=== PATIENT | female | born 1970 | race African-American/Black ===

== ENCOUNTER 2020-10-02 20:58 | Inpatient (IN) | payer MEDICARE, OTHER ==
[~2020-10-02] VITALS: Ht 162.6 cm; Wt 100.7 kg
[2020-10-02 21:46] LABS: BASOPHILS % (AUTO) 0.4 % (0.0-2.0); EOSINOPHILS % (AUTO) 1.6 % (0.0-6.0); HEMATOCRIT 36 % (33-45); HEMOGLOBIN 11.7 g/dL (11.5-14.8); LYMPHOCYTES # (AUTO) 1.4 /CMM (0.8-4.8); LYMPHOCYTES % (AUTO) 20.1 % (20.0-44.0); MEAN CORPUSCULAR HGB CONC 33 g/dl (31.0-36.0); MEAN CORPUSCULAR VOLUME 81 fL (82-100); MONOCYTES # (AUTO) 0.6 /CMM (0.1-1.30); MONOCYTES % (AUTO) 8.8 % (2.0-12.0); NEUTROPHILS # (AUTO) 4.7 /CMM (1.8-8.9); NEUTROPHILS % (AUTO) 69.1 % (43.0-81.0); PLATELET COUNT (AUTO) 256 /CMM (150-450); RED BLOOD CELL COUNT(AUTO) 4.41 MIL/uL (4.0-5.2); WHITE BLOOD COUNT (AUTO) 6.8 K/uL (4.3-11.0)
[2020-10-02 22:39] LABS: CALCIUM, SERUM 9.6 mg/dL (8.5-10.1); CARBON DIOXIDE 27 mmol/L (21-32); CHLORIDE 102 mmol/L (98-107); CREATININE 1.1 mg/dL (0.6-1.3); GLUCOSE 185 mg/dL (74-106); POTASSIUM 3.2 mmol/L (3.5-5.1); SODIUM SERUM 139 mmol/L (136-145); UREA NITROGEN, BLOOD 18 mg/dL (7-18)
[2020-10-02 22:52] LABS: ALANINE AMINOTRANSFERASE 34 U/L (12-78); ALBUMIN 3.7 g/dL (3.4-5.0); ALKALINE PHOSPHATASE 122 U/L (46-116); ASPARTATE AMINOTRANSFERASE 19 U/L (15-37); B-TYPE NATRIURETIC PEPTIDE 38 PG/ML (0-125); BILIRUBIN,DIRECT 0.1 mg/dL (0.0-0.2); BILIRUBIN,TOTAL 0.4 mg/dL (0.2-1.0); TOTAL PROTEIN, SERUM 7.2 g/dL (6.4-8.2)
[2020-10-02 22:54] LABS: CHOLESTEROL 177 mg/dL (<200); HDL CHOLESTEROL 85 mg/dL (40-60); LDL 70 mg/dL (0-99); TRIGLYCERIDES 119 mg/dL (30-150)
[2020-10-02] MEDS ORDERED: MORPHINE SULFATE INJ 4 MG/ML DISP.SYRIN ONE (23:25)
[2020-10-02] MEDS ORDERED: diphenhydrAMINE HCL 50 MG/ML VIAL ONE (23:25)
[2020-10-02] MEDS ORDERED: IOHEXOL-350 100 ML VIAL IV ONE (23:27)
[2020-10-02] MEDS ORDERED: IV NS 0.9% 0 ML IV ONE (23:28)
[2020-10-02] MEDS ORDERED: MORPHINE SULFATE INJ 2 MG/ML DISP.SYRIN IV ONE (23:30)
[2020-10-02] MEDS ORDERED: diphenhydrAMINE HCL 50 MG/ML VIAL IV ONE (23:30)
[2020-10-03] MEDS ORDERED: predniSONE 20 MG TABLET PO STA (00:31)
[2020-10-03 00:35] LABS: OCCULT BLOOD STOOL POSITIVE (NEGATIVE)
[2020-10-03] MEDS ORDERED: predniSONE 20 MG TABLET ONE (00:41)
[2020-10-03] MEDS ORDERED: predniSONE 10 MG TABLET ONE (00:41)
[2020-10-03 01:00] VITALS: BP 136/79
[2020-10-03] MEDS ORDERED: HYDROMORPHONE 1 MG/1 ML DISP.SYRIN IV PRN (02:30)
[2020-10-03] MEDS: diphenhydrAMINE HCL 50 MG/ML VIAL IV PRN ×4 (03:05→20:12)
[2020-10-03] MEDS ORDERED: ACETAMINOPHEN 325 MG TABLET PO PRN (03:30)
[2020-10-03] MEDS ORDERED: HYDR25TA4 PO (03:37)
[2020-10-03] MEDS ORDERED: HYDR4TAB4 PO (03:37)
[2020-10-03] MEDS ORDERED: CLON1TAB12 PO (03:37)
[2020-10-03] MEDS ORDERED: METF-441 PO (03:37)
[2020-10-03] MEDS ORDERED: ALBU18HF2 INH (03:37)
[2020-10-03] MEDS ORDERED: DIPH-530 PO (03:37)
[2020-10-03] MEDS ORDERED: AMLO10TA4 PO (03:37)
[2020-10-03] MEDS ORDERED: METO50TA16 PO (03:37)
[2020-10-03] MEDS ORDERED: LABE100T5 PO (03:37)
[2020-10-03] MEDS ORDERED: LISI20TA30 PO (03:37)
[2020-10-03] MEDS ORDERED: GLIP5TAB13 PO (03:37)
[2020-10-03] MEDS ORDERED: CLON0.1T PO (03:37)
[2020-10-03 04:00] VITALS: BP 144/84
[2020-10-03] MEDS ORDERED: DEXTROSE 50%-WATER 50 ML DISP.SYRIN IV PRN (04:00)
[2020-10-03] MEDS ORDERED: CLONIDINE HCL 0.1 MG TABLET PO PRN (04:00)
[2020-10-03] MEDS: ONDANSETRON HCL/PF 4 MG/2 ML VIAL IV PRN ×3 (05:41→20:12)
[2020-10-03] MEDS ORDERED: ALBUTEROL FS 2.5 MG/0.5 ML VIAL.NEB IH PRN (06:30)
[2020-10-03] MEDS: glipiZIDE 5 MG TABLET PO SCH ×2 (07:55→18:07)
[2020-10-03] MEDS: METFORMIN 850 MG TABLET PO SCH ×2 (07:55→18:09)
[2020-10-03 08:00] VITALS: BP 147/86
[2020-10-03] MEDS: BLOOD SUGAR DIAGNOSTIC 1 EACH STRIP IN SCH ×4 (08:09→22:09)
[2020-10-03] MEDS: HYDROCHLOROTHIAZIDE 25 MG TABLET PO SCH (08:19)
[2020-10-03] MEDS: clonazePAM 1 MG TABLET PO SCH ×2 (08:21→17:00)
[2020-10-03] MEDS: AMLODIPINE BESYLATE 10 MG TABLET PO SCH (08:22)
[2020-10-03] MEDS: LISINOPRIL (20MG) 20 MG TABLET PO SCH ×2 (08:22→18:07)
[2020-10-03] MEDS: METOPROLOL TARTRATE 50 MG TABLET PO SCH ×2 (08:22→18:07)
[2020-10-03] MEDS: HYDROMORPHONE 1 MG/1 ML DISP.SYRIN IV PRN ×3 (08:26→20:14)
[2020-10-03] MEDS: INSULIN REGULAR, HUMAN 100 UNIT/ML 3 ML VIAL SQ PRN ×2 (08:27→18:10)
[2020-10-03] MEDS ORDERED: CLOPIDOGREL BISULFATE 75 MG TABLET PO SCH (09:00)
[2020-10-03] MEDS ORDERED: predniSONE 20 MG TABLET PO SCH (09:00)
[2020-10-03 12:00] VITALS: BP 145/72
[2020-10-03 13:43] LABS: BASOPHILS % (AUTO) 0.7 % (0.0-2.0); EOSINOPHILS % (AUTO) 0.2 % (0.0-6.0); HEMATOCRIT 37 % (33-45); HEMOGLOBIN 11.8 g/dL (11.5-14.8); LYMPHOCYTES # (AUTO) 1.1 /CMM (0.8-4.8); LYMPHOCYTES % (AUTO) 16.7 % (20.0-44.0); MEAN CORPUSCULAR HGB CONC 32 g/dl (31.0-36.0); MEAN CORPUSCULAR VOLUME 81 fL (82-100); MONOCYTES # (AUTO) 0.4 /CMM (0.1-1.30); MONOCYTES % (AUTO) 6.2 % (2.0-12.0); NEUTROPHILS # (AUTO) 5.2 /CMM (1.8-8.9); NEUTROPHILS % (AUTO) 76.2 % (43.0-81.0); PLATELET COUNT (AUTO) 289 /CMM (150-450); RED BLOOD CELL COUNT(AUTO) 4.56 MIL/uL (4.0-5.2); WHITE BLOOD COUNT (AUTO) 6.9 K/uL (4.3-11.0)
[2020-10-03 13:55] LABS: CALCIUM, SERUM 9.3 mg/dL (8.5-10.1); CREATININE 1.1 mg/dL (0.6-1.3); MAGNESIUM 1.8 mg/dL (1.8-2.4); PHOSPHORUS 3.1 mg/dL (2.5-4.9); POTASSIUM 3.6 mmol/L (3.5-5.1)
[2020-10-03 14:07] LABS: THYROID STIMULATING HORMONE 0.151 uIU/mL (0.358-3.74)
[2020-10-03] MEDS ORDERED: POTASSIUM CHLORIDE 20 MEQ TAB.PRT.SR PO ONE (14:30)
[2020-10-03] MEDS ORDERED: IV D5/0.45 NACL 1,000 ML IV PRN (15:00)
[2020-10-03 16:00] VITALS: BP_SYST 140; BP_SYST 145; BP_DIAS 70; BP_DIAS 72
[2020-10-03] MEDS: PANTOPRAZOLE 40 MG VIAL IV SCH (18:01)
[2020-10-03 20:00] VITALS: BP 121/67
[2020-10-03] MEDS: ATORVASTATIN 10 MG TABLET PO SCH (21:55)
[2020-10-04] MEDS: diphenhydrAMINE HCL 50 MG/ML VIAL IV PRN ×5 (00:13→18:27)
[2020-10-04] MEDS: HYDROMORPHONE 1 MG/1 ML DISP.SYRIN IV PRN ×3 (00:14→08:24)
[2020-10-04 04:00] VITALS: BP 149/85
[2020-10-04 08:00] VITALS: BP 128/75
[2020-10-04] MEDS: BLOOD SUGAR DIAGNOSTIC 1 EACH STRIP IN SCH ×4 (08:10→21:18)
[2020-10-04] MEDS: METFORMIN 850 MG TABLET PO SCH ×2 (08:24→17:50)
[2020-10-04] MEDS: glipiZIDE 5 MG TABLET PO SCH ×2 (08:24→17:44)
[2020-10-04] MEDS: PANTOPRAZOLE 40 MG VIAL IV SCH ×2 (10:06→17:43)
[2020-10-04] MEDS: METOPROLOL TARTRATE 50 MG TABLET PO SCH ×2 (10:08→17:00)
[2020-10-04] MEDS: HYDROCHLOROTHIAZIDE 25 MG TABLET PO SCH (10:08)
[2020-10-04] MEDS: LISINOPRIL (20MG) 20 MG TABLET PO SCH ×2 (10:09→17:00)
[2020-10-04] MEDS: AMLODIPINE BESYLATE 10 MG TABLET PO SCH (10:09)
[2020-10-04] MEDS: clonazePAM 1 MG TABLET PO SCH ×2 (10:14→17:52)
[2020-10-04] MEDS ORDERED: HYDROMORPHONE 1 MG/1 ML DISP.SYRIN IV ONE ×2 (11:25→13:00)
[2020-10-04] MEDS ORDERED: HYDROMORPHONE 1 MG/1 ML DISP.SYRIN IV PRN (11:30)
[2020-10-04] MEDS ORDERED: diphenhydrAMINE HCL 25 MG CAPSULE PO ONE (12:00)
[2020-10-04 12:23] LABS: BASOPHILS % (AUTO) 0.7 % (0.0-2.0); EOSINOPHILS % (AUTO) 1.8 % (0.0-6.0); HEMATOCRIT 38 % (33-45); HEMOGLOBIN 11.8 g/dL (11.5-14.8); LYMPHOCYTES # (AUTO) 2.9 /CMM (0.8-4.8); LYMPHOCYTES % (AUTO) 48.7 % (20.0-44.0); MEAN CORPUSCULAR HGB CONC 32 g/dl (31.0-36.0); MEAN CORPUSCULAR VOLUME 81 fL (82-100); MONOCYTES # (AUTO) 0.5 /CMM (0.1-1.30); MONOCYTES % (AUTO) 8.6 % (2.0-12.0); NEUTROPHILS # (AUTO) 2.4 /CMM (1.8-8.9); NEUTROPHILS % (AUTO) 40.2 % (43.0-81.0); PLATELET COUNT (AUTO) 274 /CMM (150-450); RED BLOOD CELL COUNT(AUTO) 4.61 MIL/uL (4.0-5.2); WHITE BLOOD COUNT (AUTO) 5.9 K/uL (4.3-11.0)
[2020-10-04] MEDS ORDERED: CEFTRIAXONE 1 G VIAL IM ONE (12:30)
[2020-10-04] MEDS ORDERED: METRONIDAZOLE 500 MG TABLET PO ONE (12:30)
[2020-10-04] MEDS ORDERED: oxyCODONE/APAP (5/325 MG) 1 UDTAB TABLET PO PRN (12:30)
[2020-10-04 12:35] LABS: CALCIUM, SERUM 9.1 mg/dL (8.5-10.1); POTASSIUM 3.6 mmol/L (3.5-5.1)
[2020-10-04] MEDS ORDERED: METHOCARBAMOL (500MG) 500 MG TABLET PO SCH (13:00)
[2020-10-04] MEDS ORDERED: METOCLOPRAMIDE HCL 10 MG/2 ML VIAL IV ONE (13:00)
[2020-10-04] MEDS: METHOCARBAMOL (500MG) 500 MG TABLET PO SCH ×2 (13:10→21:00)
[2020-10-04] MEDS ORDERED: LIDOCAINE HCL/PF 1% 30 ML VIAL IM ONE (13:31)
[2020-10-04 16:00] VITALS: BP 95/45
[2020-10-04 20:00] VITALS: BP 107/62
[2020-10-04] MEDS: DOXYCYCLINE HYCLATE (100 MG) 100 MG TABLET PO SCH (21:17)
[2020-10-04] MEDS: ATORVASTATIN 10 MG TABLET PO SCH (21:18)
[2020-10-05 04:00] VITALS: BP 135/68
[2020-10-05] MEDS: METHOCARBAMOL (500MG) 500 MG TABLET PO SCH ×3 (05:00→21:39)
[2020-10-05] MEDS: diphenhydrAMINE HCL 50 MG/ML VIAL IV PRN ×5 (05:04→23:24)
[2020-10-05] MEDS: oxyCODONE/APAP (5/325 MG) 1 UDTAB TABLET PO PRN ×4 (05:08→23:19)
[2020-10-05] MEDS: ONDANSETRON HCL/PF 4 MG/2 ML VIAL IV PRN ×2 (05:20→08:31)
[2020-10-05 06:21] LABS: BASOPHILS # (AUTO) 0.1 /CMM (0.0-0.2); BASOPHILS % (AUTO) 1.3 % (0.0-2.0); CALCIUM, SERUM 8.5 mg/dL (8.5-10.1); CREATININE 1.1 mg/dL (0.6-1.3); EOSINOPHILS % (AUTO) 2.2 % (0.0-6.0); HEMATOCRIT 37 % (33-45); HEMOGLOBIN 11.6 g/dL (11.5-14.8); LYMPHOCYTES # (AUTO) 1.9 /CMM (0.8-4.8); LYMPHOCYTES % (AUTO) 38.6 % (20.0-44.0); MAGNESIUM 1.5 mg/dL (1.8-2.4); MEAN CORPUSCULAR HGB CONC 32 g/dl (31.0-36.0); MEAN CORPUSCULAR VOLUME 82 fL (82-100); MONOCYTES # (AUTO) 0.4 /CMM (0.1-1.30); MONOCYTES % (AUTO) 8.9 % (2.0-12.0); NEUTROPHILS # (AUTO) 2.4 /CMM (1.8-8.9); PLATELET COUNT (AUTO) 238 /CMM (150-450); POTASSIUM 3.4 mmol/L (3.5-5.1); RED BLOOD CELL COUNT(AUTO) 4.47 MIL/uL (4.0-5.2)
[2020-10-05 08:00] VITALS: BP 135/78
[2020-10-05] MEDS: BLOOD SUGAR DIAGNOSTIC 1 EACH STRIP IN SCH ×4 (08:09→21:40)
[2020-10-05] MEDS: clonazePAM 1 MG TABLET PO SCH ×2 (08:09→17:43)
[2020-10-05] MEDS: glipiZIDE 5 MG TABLET PO SCH ×2 (08:09→17:43)
[2020-10-05] MEDS: METFORMIN 850 MG TABLET PO SCH ×2 (08:09→17:43)
[2020-10-05] MEDS: PANTOPRAZOLE 40 MG VIAL IV SCH ×2 (08:09→17:44)
[2020-10-05] MEDS: DOXYCYCLINE HYCLATE (100 MG) 100 MG TABLET PO SCH ×2 (08:09→20:18)
[2020-10-05] MEDS: AMLODIPINE BESYLATE 10 MG TABLET PO SCH (08:22)
[2020-10-05] MEDS: METOPROLOL TARTRATE 50 MG TABLET PO SCH ×2 (08:23→17:43)
[2020-10-05] MEDS: HYDROCHLOROTHIAZIDE 25 MG TABLET PO SCH (08:23)
[2020-10-05] MEDS: LISINOPRIL (20MG) 20 MG TABLET PO SCH ×2 (08:23→17:43)
[2020-10-05] MEDS: POTASSIUM CHLORIDE 20 MEQ TAB.PRT.SR PO SCH ×2 (09:22→10:19)
[2020-10-05] MEDS: Magnesium 1GM/D5W 100ML PREMIX 100 ML IV SCH ×2 (09:22→10:19)
[2020-10-05] MEDS ORDERED: LIDOCAINE 5% OINT 35.44 GM TUBE TP PRN (12:30)
[2020-10-05] MEDS: INSULIN REGULAR, HUMAN 100 UNIT/ML 3 ML VIAL SQ PRN ×2 (12:36→18:21)
[2020-10-05] MEDS: MICONAZOLE NITRATE 2% TP SCH ×2 (13:16→20:18)
[2020-10-05] MEDS ORDERED: METH28OI2 TP (13:18)
[2020-10-05] MEDS ORDERED: MICONAZOLE NITRATE 2% TP (13:18)
[2020-10-05] MEDS ORDERED: OXYC1TAB8 PO (13:18)
[2020-10-05] MEDS ORDERED: ATOR10TA PO (13:18)
[2020-10-05] MEDS ORDERED: LIDO35.4 TP (13:18)
[2020-10-05] MEDS ORDERED: DOXY100T2 PO (13:26)
[2020-10-05 16:00] VITALS: BP 130/71
[2020-10-05] MEDS ORDERED: METHYL SALICYLATE/MENTHOL 28GM 28 GM TUBE TP PRN (17:00)
[2020-10-05 20:00] VITALS: BP 123/75
[2020-10-05] MEDS: ATORVASTATIN 10 MG TABLET PO SCH (21:39)
[2020-10-06] MEDS ORDERED: diphenhydrAMINE HCL 50 MG/ML VIAL IV ONE (00:20)
[2020-10-06 04:00] VITALS: BP 130/64
[2020-10-06] MEDS: METHOCARBAMOL (500MG) 500 MG TABLET PO SCH ×2 (05:00→12:14)
[2020-10-06] MEDS: oxyCODONE/APAP (5/325 MG) 1 UDTAB TABLET PO PRN ×2 (06:57→14:03)
[2020-10-06] MEDS: diphenhydrAMINE HCL 50 MG/ML VIAL IV PRN ×2 (06:57→11:00)
[2020-10-06] MEDS: BLOOD SUGAR DIAGNOSTIC 1 EACH STRIP IN SCH ×2 (07:58→12:14)
[2020-10-06 08:00] VITALS: BP 155/86
[2020-10-06] MEDS: HYDROCHLOROTHIAZIDE 25 MG TABLET PO SCH (08:08)
[2020-10-06] MEDS: PANTOPRAZOLE 40 MG VIAL IV SCH (08:08)
[2020-10-06] MEDS: clonazePAM 1 MG TABLET PO SCH (08:08)
[2020-10-06] MEDS: MICONAZOLE NITRATE 2% TP SCH (08:08)
[2020-10-06 08:09] VITALS: BP 155/86
[2020-10-06] MEDS: LISINOPRIL (20MG) 20 MG TABLET PO SCH (08:09)
[2020-10-06] MEDS: glipiZIDE 5 MG TABLET PO SCH (08:09)
[2020-10-06] MEDS: AMLODIPINE BESYLATE 10 MG TABLET PO SCH (08:09)
[2020-10-06] MEDS: METFORMIN 850 MG TABLET PO SCH (08:09)
[2020-10-06] MEDS: METOPROLOL TARTRATE 50 MG TABLET PO SCH (08:09)
[2020-10-06] MEDS: DOXYCYCLINE HYCLATE (100 MG) 100 MG TABLET PO SCH (08:09)
[2020-10-06] MEDS: INSULIN REGULAR, HUMAN 100 UNIT/ML 3 ML VIAL SQ PRN ×2 (08:13→12:07)
[2020-10-06] MEDS ORDERED: SULFANILAMIDE VAG CR 120 GM TUBE VG SCH (09:00)
[2020-10-06] MEDS ORDERED: LATUDA 40MG PO SCH (09:00)
== END 2020-10-06 15:14 | disposition home or self-care (01) | DRG 378 ==
LOC: ER 21:11 → TELE1 10-03 00:28 → MEDSG1 10-03 08:05
PROVIDERS: ADMIT Nurse Practitioner Family; ATTEND Registered Nurse
DX: K92.2 Gastrointestinal hemorrhage, unspecified (principal); G45.9 Transient cerebral ischemic attack, unspecified; E87.6 Hypokalemia; E11.9 Type 2 diabetes mellitus without complications; I25.10 Atherosclerotic heart disease of native coronary artery without angina pectoris; I11.0 Hypertensive heart disease with heart failure; I50.9 Heart failure, unspecified; Z87.891 Personal history of nicotine dependence; Z86.73 Personal history of transient ischemic attack (TIA), and cerebral infarction without residual deficits; R29.702 NIHSS score 2; E78.5 Hyperlipidemia, unspecified; G51.0 Bell's palsy; G89.4 Chronic pain syndrome; E11.40 Type 2 diabetes mellitus with diabetic neuropathy, unspecified; E78.00 Pure hypercholesterolemia, unspecified; F29 Unspecified psychosis not due to a substance or known physiological condition; I25.2 Old myocardial infarction; Z20.2 Contact with and (suspected) exposure to infections with a predominantly sexual mode of transmission; Z68.37 Body mass index [BMI] 37.0-37.9, adult; E66.01 Morbid (severe) obesity due to excess calories; Z76.5 Malingerer [conscious simulation]; Z79.02 Long term (current) use of antithrombotics/antiplatelets; Z79.891 Long term (current) use of opiate analgesic; Z88.2 Allergy status to sulfonamides; Z88.8 Allergy status to other drugs, medicaments and biological substances; Z88.1 Allergy status to other antibiotic agents; Z91.041 Radiographic dye allergy status; Z91.5 Personal history of self-harm
CPT/HCPCS: 36415; 70450-TC; 70551-TC; 71045-TC; 80048-TC; 80061-TC; 80076-TC; 82272-TC; 82728-TC; 82962-TC; 83540-TC; 83735-TC; 83880; 84100-TC; 84439-TC; 84443-TC; 84484-TC; 85025-TC; 85730-TC; 87081-TC; 92526; 92611-TC; 93880-TC; 97110-TC; 97112-TC; 97116-TC; 97530-TC; C9113; C9803; G0378; J0696; J1170; J1200; J1815; J2270; J2405; J2765; J3475; J3490; J7050; Q0163; Q9967

== ENCOUNTER 2020-11-19 20:30 | Inpatient (IN) | payer OTHER, MEDICARE ==
[~2020-11-19] VITALS: Ht 162.6 cm; Wt 99.3 kg
[~2020-11-19 20:30] MED LIST: ALBU18HF2 INH; AMLO10TA4 PO; ATOR10TA PO; CLON0.1T PO; CLON1TAB12 PO; DIPH-530 PO; DOXY100T2 PO; GLIP5TAB13 PO; HYDR25TA4 PO; LIDO35.4 TP; LISI20TA30 PO; METF-441 PO; METH28OI2 TP; METO50TA16 PO; MICONAZOLE NITRATE 2% TP; OXYC1TAB8 PO
--- NOTE | 2020-11-19 20:35 | NUR ---
PATIENT COME C/O RT SIDED NUMBNESS ON FACE, LIGHT SENSITIVTY AND CP PRESSURE LIKE X30MIN +BLACK STOOLS X 1 WEEK. PATIENT IS ALERT AND ORIENTED X 4, STABLE ON ROOM AIR. PATIENT CONNECETED TO SENIOR ENERGY MARKET COORDINATOR AND POX. WILL CONTINUE TO MONIOTR.
--- NOTE | 2020-11-19 20:40 | NUR ---
PT AMBULATED TO BATHROOM WITH STEADY GAIT, PT PROVIDING URINE SAMPLE AT THIS TIME
--- NOTE | 2020-11-19 20:56 | NUR ---
DR TAM AT BEDSIDE FOR EVAL
--- NOTE | 2020-11-19 21:00 | NUR ---
PATIENT HARD STICK, UNABLE TO START IV LINE AT THIS TIME, INFORMED CHARGE.
[2020-11-19 21:31] LABS: BILIRUBIN,URINE Negative (NEGATIVE); COLOR,URINE YELLOW (YELLOW); LEUKOCYTE ESTERASE ,URINE Negative (NEGATIVE); NITRITE, URINE Negative (NEGATIVE); PROTEIN,URINE 30 mg/dl (NEGATIVE); UGLUCOSE 500 MG/DL mg/dL (NEGATIVE); UROBILINOGEN,URINE 0.2 EU/dL (0.2)
[2020-11-19 21:36] LABS: RBC,URINE 0-2 /HPF (0-2); WBC,URINE 0-2 /HPF (0-3)
[2020-11-19 21:37] LABS: BACTERIA,URINE Rare /HPF (None Seen); MUCUS,URINE Few /LPF (None Seen); SQUAMOUS EPITHELIAL CELL,UR 0-2 /HPF (None Seen)
[2020-11-19 21:42] LABS: WHITE BLOOD COUNT (AUTO) 7.2 K/uL (4.3-11.0)
[2020-11-19 21:45] LABS: BASOPHILS % (AUTO) 0.7 % (0.0-2.0); EOSINOPHILS % (AUTO) 1.7 % (0.0-6.0); HEMATOCRIT 41 % (33-45); HEMOGLOBIN 13.4 g/dL (11.5-14.8); LYMPHOCYTES % (AUTO) 28.3 % (20.0-44.0); MEAN CORPUSCULAR HGB CONC 33 g/dl (31.0-36.0); MEAN CORPUSCULAR VOLUME 80 fL (82-100); MONOCYTES # (AUTO) 0.5 /CMM (0.1-1.30); MONOCYTES % (AUTO) 6.4 % (2.0-12.0); NEUTROPHILS # (AUTO) 4.5 /CMM (1.8-8.9); NEUTROPHILS % (AUTO) 62.9 % (43.0-81.0); PLATELET COUNT (AUTO) 281 /CMM (150-450); RED BLOOD CELL COUNT(AUTO) 5.15 MIL/uL (4.0-5.2)
[2020-11-19 21:48] LABS: CALCIUM, SERUM 9.4 mg/dL (8.5-10.1); CARBON DIOXIDE 28 mmol/L (21-32); CHLORIDE 101 mmol/L (98-107); CREATININE 0.9 mg/dL (0.6-1.3); GLUCOSE 249 mg/dL (74-106); POTASSIUM 3.5 mmol/L (3.5-5.1); SODIUM SERUM 137 mmol/L (136-145); UREA NITROGEN, BLOOD 16 mg/dL (7-18)
[2020-11-19] MEDS ORDERED: ACETAMINOPHEN ES 500 MG TABLET ONE (22:17)
[2020-11-19] MEDS ORDERED: ACETAMINOPHEN ES 500 MG TABLET PO ONE (22:30)
--- NOTE | 2020-11-19 22:30 | NUR ---
PATIENT REFUSED X-RAY X 2, RISK AND BENEFITS EXPLAINED TO PATIENT
[2020-11-19] MEDS ORDERED: MORPHINE SULFATE INJ 4 MG/ML DISP.SYRIN ONE (22:52)
--- NOTE | 2020-11-19 22:54 | NUR ---
PATIENT GIVEN MORPHINE 4MG IM X 1.
--- NOTE | 2020-11-19 22:55 | NUR ---
COVID SWAB COLLECTED SENT TO LAB
[2020-11-19] MEDS ORDERED: MORPHINE SULFATE INJ 2 MG/ML DISP.SYRIN IV ONE (23:00)
[2020-11-19] MEDS ORDERED: MORPHINE SULFATE INJ 2 MG/ML DISP.SYRIN IM ONE (23:00)
--- NOTE | 2020-11-19 23:11 | NUR ---
PATIENT RETURNED FROM CT
[2020-11-20] MEDS ORDERED: MAGNESIUM HYDROXIDE 30 ML UDC PO PRN
[2020-11-20] MEDS ORDERED: ZOLPIDEM TARTRATE 5 MG TABLET PO PRN
[2020-11-20] MEDS ORDERED: METHYL SALICYLATE/MENTHOL 28GM 28 GM TUBE TP PRN
[2020-11-20] MEDS ORDERED: HYDROMORPHONE HCL 2 MG TABLET PO PRN
[2020-11-20] MEDS ORDERED: ACETAMINOPHEN 325 MG TABLET PO PRN
[2020-11-20] MEDS ORDERED: DEXTROSE 50%-WATER 50 ML DISP.SYRIN IV PRN
[2020-11-20] MEDS ORDERED: ENOXAPARIN SODIUM 40 MG/0.4 ML DISP.SYRIN SQ ONE
[2020-11-20] MEDS ORDERED: oxyCODONE/APAP (5/325 MG) 1 UDTAB TABLET ONE (00:26)
[2020-11-20] MEDS: oxyCODONE/APAP (5/325 MG) 1 UDTAB TABLET PO PRN ×2 (00:28→14:42)
[2020-11-20] MEDS ORDERED: ALBUTEROL FS 2.5 MG/3 ML VIAL.NEB NEB PRN (00:30)
--- NOTE | 2020-11-20 00:30 | NUR ---
PATIENT REFUSED ECHOCARDIOGRAM, RISK AND BENEFITS HAVE BEEN EXPLAINED TO PATIENT.
--- NOTE | 2020-11-20 00:58 | NUR ---
REPORT GIVEN TO CHARGE MARILYN TAVERA GOING TO ROOM 323-2
[2020-11-20] MEDS ORDERED: diphenhydrAMINE HCL ELIX 25 MG/10 ML UDC PO PRN (01:00)
--- NOTE | 2020-11-20 01:11 | NUR ---
PATIENT TRANSFERRED PER ACLS PROTOCOL
--- NOTE | 2020-11-20 01:11 | NUR ---
POTATO CHIP PROCESSING SUPERVISORTEACHER OF THE HEARING IMPAIRED NOTE PT TRANSPORTED VIA GURNEY TO TELE UNIT. A/O X4. PT IS AMBULATORY. GAIT IS STEADY. PT IS ON EXTERNAL COOKING CHEF READING SR 88. NO SOB NOTED. NO S/S OF RESPIRATORY DISTRESS. PT STABLE ON ROOM AIR. NO IV ACCESS AT THIS TIME. PT DENIES PAIN OR DISCOMFORT. SKIN IS INTACT. PT ORIENTED TO STAFF, ROOM, AND UNIT. SAFETY AND ASPIRATION PRECAUTIONS IN PLACE AND MAINTAINED AT ALL TIMES. BED IN LOWEST LOCKED POSITION, HOB ELEVATED, SIDE RAILS UP X2. CALL LIGHT AND TABLE WITHIN REACH. WILL CONTINUE TO MONITOR.
[2020-11-20 01:45] VITALS: BP 158/88
[2020-11-20] MEDS: ATORVASTATIN 10 MG TABLET PO SCH ×2 (01:49→22:05)
--- NOTE | 2020-11-20 04:00 | NUR ---
PT REFUSED VITAL SIGNS. RISKS AND BENEFITS EXPLAINED TO PT. WILL CONTINUE TO MONITOR PT.
[2020-11-20] MEDS: METHOCARBAMOL (500MG) 500 MG TABLET PO SCH ×3 (05:00→21:00)
--- NOTE | 2020-11-20 06:50 | NUR ---
PT REFUSED ACCUCHECK AT THIS TIME. RISKS AND BENEFITS EXPLAINED TO PATIENT.
--- NOTE | 2020-11-20 07:02 | NUR ---
MAIL HANDLER ASSISTANT CLOSING NOTE PATIENT IS AWAKE IN BED AT THIS TIME. A/O X4. PT IS AMBULATORY. GAIT IS STEADY. PT IS ON EXTERNAL BRASSWIND INSTRUMENT REPAIRER READING SR 86. NO SOB NOTED. NO S/S OF RESPIRATORY DISTRESS. PT STABLE ON ROOM AIR. NO IV ACCESS AT THIS TIME. PT DENIES PAIN OR DISCOMFORT. ALL NEEDS HAVE BEEN MET. SAFETY AND ASPIRATION PRECAUTIONS MAINTAINED AT ALL TIMES. BED IN LOWEST LOCKED POSITION, HOB ELEVATED, SIDE RAILS UP X2. CALL LIGHT AND TABLE WITHIN REACH. WILL ENDORSE TO ONCOMING NURSE FOR CONTINUITY OF CARE.
[2020-11-20] MEDS: BLOOD SUGAR DIAGNOSTIC 1 EACH STRIP IN SCH ×4 (07:30→22:23)
--- NOTE | 2020-11-20 07:39 | NUR ---
WILDLIFE ECOLOGIST OPENING NOTE PATIENT IS AWAKE IN BED AT THIS TIME. A/O X4. PT IS ON EXTERNAL JERKER READING SR 88. NO SOB NOTED. NO S/S OF RESPIRATORY DISTRESS. PT STABLE ON ROOM AIR. NO IV ACCESS AT THIS TIME, BUT THERE IS AN ORDER FOR MIDLINE. PT DENIES PAIN OR DISCOMFORT. PATIENT IS AMBULATORY SKIN INTACT. SAFETY PRECAUTIONS MAINTAINED AT ALL TIMES. BED IN LOWEST LOCKED POSITION, HOB ELEVATED, SIDE RAILS UP X2. CALL LIGHT AND TABLE WITHIN REACH
--- NOTE | 2020-11-20 07:45 | NUR ---
FLORAL DECORATOR NOTES PATIENT CONTINUES TO REFUSE ACCUCHECK AND MORNING LABS AT THIS TIME. PATIENT WANTED TO REST. EXPLAINED RISK AND BENEFITS AT THIS TIME. WILL CONTINUE TO MONITOR
[2020-11-20] MEDS: glipiZIDE 5 MG TABLET PO SCH ×2 (08:15→16:38)
[2020-11-20] MEDS: clonazePAM 1 MG TABLET PO SCH ×2 (08:37→16:38)
[2020-11-20] MEDS: METFORMIN 850 MG TABLET PO SCH ×2 (08:37→17:03)
[2020-11-20] MEDS: METOPROLOL TARTRATE 50 MG TABLET PO SCH ×2 (08:38→16:39)
[2020-11-20] MEDS: LISINOPRIL (20MG) 20 MG TABLET PO SCH ×2 (08:38→16:38)
[2020-11-20] MEDS: AMLODIPINE BESYLATE 10 MG TABLET PO SCH (08:39)
[2020-11-20] MEDS: HYDROCHLOROTHIAZIDE 25 MG TABLET PO SCH (08:39)
--- NOTE | 2020-11-20 08:45 | NUR ---
RN NOTES PATIENT REFUSED ECHO PER BODILY INJURY ADJUSTER; PER PATIENT, SHE WANTS TO WAIT FOR THE MIDLINE TO BE INSERTED BEFORE PROCEDURE WILL BE DONE. WITH NEW ORDER FOR CT ANGIO OF THE HEART; PATIENT MADE AWARE OF NEW ORDER AND CONTRAST ADMINISTRATION, BUT PATIENT STATED THAT SHE HAS CONTRAST ALLERGY, UNABLE TO STATE EXTENT OF ALLERGY SEVERITY. CHARGE NURSE MADE AWARE. WILL CONTINUE TO MONITOR.
--- NOTE | 2020-11-20 09:18 | NUR ---
PATIENT REFUSED AN ECHOCARDIOGRAM. SHE WANTS TO HAVE HER PAIN MEDS THRU MIDLINE PRIOR TO HAVING AN ECHO. RN ADVISED.
--- NOTE | 2020-11-20 10:00 | NUR ---
RN NOTES DR. HOFFMANN MADE AWARE OF PATIENT'S CONTRAST ALLERGY R/T CT ANGIO HEART PROCEDURE.
[2020-11-20] MEDS: INSULIN REGULAR, HUMAN 100 UNIT/ML 3 ML VIAL SQ PRN ×3 (11:06→22:25)
[2020-11-20] MEDS: ONDANSETRON HCL/PF 4 MG/2 ML VIAL IVP PRN ×2 (11:39→22:07)
[2020-11-20] MEDS: MORPHINE SULFATE INJ 2 MG/ML DISP.SYRIN IV PRN ×3 (11:43→22:08)
--- NOTE | 2020-11-20 12:31 | NUR ---
RN NOTES PATIENT HAS VTE SCORE OF 2. PATIENT REFUSED MECHANICAL SCD SOCKS, RISKS AND BENEFITS EXPLAINED. MD AWARE.
[2020-11-20 15:01] LABS: BASOPHILS # (AUTO) 0.1 /CMM (0.0-0.2); BASOPHILS % (AUTO) 1.3 % (0.0-2.0); EOSINOPHILS % (AUTO) 2.3 % (0.0-6.0); HEMATOCRIT 40 % (33-45); HEMOGLOBIN 12.9 g/dL (11.5-14.8); LYMPHOCYTES % (AUTO) 30.5 % (20.0-44.0); MEAN CORPUSCULAR HGB CONC 32 g/dl (31.0-36.0); MEAN CORPUSCULAR VOLUME 80 fL (82-100); MONOCYTES # (AUTO) 0.6 /CMM (0.1-1.30); MONOCYTES % (AUTO) 8.3 % (2.0-12.0); NEUTROPHILS # (AUTO) 3.8 /CMM (1.8-8.9); NEUTROPHILS % (AUTO) 57.6 % (43.0-81.0); PLATELET COUNT (AUTO) 252 /CMM (150-450); RED BLOOD CELL COUNT(AUTO) 5.03 MIL/uL (4.0-5.2); WHITE BLOOD COUNT (AUTO) 6.7 K/uL (4.3-11.0)
[2020-11-20 15:33] LABS: CALCIUM, SERUM 9.2 mg/dL (8.5-10.1); CREATININE 0.9 mg/dL (0.6-1.3); MAGNESIUM 1.4 mg/dL (1.8-2.4); PHOSPHORUS 3.6 mg/dL (2.5-4.9); POTASSIUM 3.6 mmol/L (3.5-5.1)
[2020-11-20] MEDS: diphenhydrAMINE HCL 25 MG CAPSULE PO PRN (17:03)
--- NOTE | 2020-11-20 18:49 | NUR ---
LANGUAGE THERAPIST CLOSING NOTE PATIENT IS AWAKE IN BED AT THIS TIME. A/O X4. PT IS AMBULATORY. GAIT IS STEADY. PT IS ON EXTERNAL NET MAKING SUPERVISOR READING SR 90. NO SOB NOTED. NO S/S OF RESPIRATORY DISTRESS. PT STABLE ON ROOM AIR. PATIENT HAS IV ACCESS MIDLINE ON LEFT UPPER ARM 18 GAUGE PATENT AND INTACT. PT DENIES PAIN OR DISCOMFORT. ALL NEEDS HAVE BEEN MET. SAFETY AND ASPIRATION PRECAUTIONS MAINTAINED AT ALL TIMES. BED IN LOWEST LOCKED POSITION, HOB ELEVATED, SIDE RAILS UP X2. CALL LIGHT AND TABLE WITHIN REACH. WILL ENDORSE TO ONCOMING NURSE FOR CONTINUITY OF CARE
[2020-11-20 20:00] VITALS: BP 148/81
[2020-11-20] MEDS ORDERED: MAGNESIUM OXIDE 400 MG TABLET PO ONE (20:30)
[2020-11-20] MEDS ORDERED: diphenhydrAMINE HCL 50 MG/ML VIAL IV ONE (20:30)
--- NOTE | 2020-11-20 20:30 | NUR ---
NOTIFIED MD OF MAGNESIUM LEVEL 1.4 AND PATIENT STILL BEING ITCHY. ORDERED MAGNESIUM OXIDE 800 MG PO ONCE AND 25 MG BENADRYL IV ONCE. ALL ORDERS READ BACK AND CARRIED OUT.
--- NOTE | 2020-11-20 22:10 | NUR ---
PATIENT GIVEN MORPHINE FOR 10/10 CHEST PAIN AND ZOFRAN FOR THE NAUSEA. WILL REASSESS.
[2020-11-21] MEDS: METHOCARBAMOL (500MG) 500 MG TABLET PO SCH ×3 (05:00→21:00)
[2020-11-21] MEDS: MORPHINE SULFATE INJ 2 MG/ML DISP.SYRIN IV PRN (06:30)
--- NOTE | 2020-11-21 06:30 | NUR ---
MORPHINE GIVEN FOR CHEST PAIN 04/17.
[2020-11-21] MEDS: BLOOD SUGAR DIAGNOSTIC 1 EACH STRIP IN SCH ×4 (07:25→22:21)
[2020-11-21] MEDS: INSULIN REGULAR, HUMAN 100 UNIT/ML 3 ML VIAL SQ PRN ×3 (07:28→22:23)
--- NOTE | 2020-11-21 07:29 | NUR ---
PATIENT BS 160 MG/DL, 2 UNITS COVERAGE NOT GIVEN, PATIENT REFUSED AT THIS TIME.
--- NOTE | 2020-11-21 07:39 | NUR ---
LABORER DRIVER CLOSING NOTE PATIENT IN NO ACUTE DISTRESS AT THIS TIME. BREATHING EVEN AND UNLABORED. PAIN MANAGED DURING THE SHIFT. SAFETY MEASURES MAINTAINED. TELE MONITOR READS SR 67 BPM. ALL ORDERS CARRIED OUT, NEEDS ALL MET AND ATTENDED. ENDORSED TO DAY SHIFT NURSE FOR MARTÍNEZ.
--- NOTE | 2020-11-21 07:58 | NUR ---
BROOD HATCHERY MANAGER OPENING NOTE PATIENT IS IN BED RESTING, PATIENT IS IN NO ACUTE DISTRESS, PATIENT IS ON ROOM AIR, TOLERATING WELL. NO SOB NOTED. PATIENT IS ON TELE MONITOR READING SR 70s. SAFETY PRECAUTIONS ARE ON, BED IS LOCKED IN THE LOWEST POSITION, WITH SIDE RAILS UP, CALL LIGHT WITHIN REACH, WILL CONTINUE TO MONITOR CLOSELY THROUGHOUT THE SHIFT.
[2020-11-21] MEDS: HYDROCHLOROTHIAZIDE 25 MG TABLET PO SCH (08:19)
[2020-11-21] MEDS: glipiZIDE 5 MG TABLET PO SCH ×2 (08:20→18:01)
[2020-11-21] MEDS: LISINOPRIL (20MG) 20 MG TABLET PO SCH ×2 (08:20→18:02)
[2020-11-21] MEDS: METOPROLOL TARTRATE 50 MG TABLET PO SCH ×2 (08:20→18:01)
[2020-11-21] MEDS: METFORMIN 850 MG TABLET PO SCH ×2 (08:20→18:00)
[2020-11-21] MEDS: clonazePAM 1 MG TABLET PO SCH ×2 (08:20→18:01)
[2020-11-21] MEDS: AMLODIPINE BESYLATE 10 MG TABLET PO SCH (08:20)
--- NOTE | 2020-11-21 08:45 | NUR ---
PATIENT REFUSED AN ECHOCARDIOGRAM 4 TIMES FOR VARIOUS REASONS. INFORMED ANGEL AND SHE ADVISED TO CANCEL EXAM.
[2020-11-21] MEDS ORDERED: HYDROMORPHONE MDV 1 MG in IV D5W 50 ML IV PRN (10:00)
[2020-11-21] MEDS: diphenhydrAMINE HCL 25 MG CAPSULE PO PRN (10:37)
[2020-11-21] MEDS: FAMOTIDINE (20 MG) 20 MG TABLET PO SCH ×2 (10:37→21:59)
[2020-11-21] MEDS: HYDROMORPHONE 1 MG/1 ML DISP.SYRIN IV PRN ×3 (10:38→23:46)
[2020-11-21] MEDS: ONDANSETRON HCL/PF 4 MG/2 ML VIAL IVP PRN ×2 (16:59→23:45)
--- NOTE | 2020-11-21 18:12 | NUR ---
MS RN NOTE PATIENTS BLOOD SUGAR WAS 135, PATIENT REFUSED 2 UNITS OF INSULIN, PATIENT STATED SHES TAKING GLIPIZIDE AND METFORMIN SCHEDULED AT 17:00. EDUCATED RISK AND BENEFITS.
--- NOTE | 2020-11-21 18:57 | NUR ---
MS RN CLOSING NOTE PATIENT IS IN BED RESTING, PATIENT IS IN NO ACUTE DISTRESS, PATIENT IS ON ROOM AIR, TOLERATING WELL. NO SOB NOTED. SAFETY PRECAUTIONS ARE ON, BED IS LOCKED IN THE LOWEST POSITION, WITH SIDE RAILS UP, CALL LIGHT WITHIN REACH, ENDORSE PATIENT TO HOSIERY MATER NURSE FOR MARTÍNEZ.
--- NOTE | 2020-11-21 19:15 | NUR ---
MS RN OPENING NOTE PATIENT IN BED AWAKE, RESTING. A/O X 4, ABLE TO MAKE NEEDS KNOWN. PATIENT DOES NOT COMPLAIN OF PAIN AT THIS TIME. BREATHING EVEN AND UNLABORED, TOLERATING ROOM AIR. LEFT UPPER ARM MIDLINE PATENT AND INTACT, FLUSHING WELL. SAFETY MEASURES IN PLACE: BED IN LOCKED AND LOWEST POSITION, SIDE RAILS UP, CALL LIGHT WITHIN REACH. WILL MONITOR PATIENT CLOSELY.
[2020-11-21 20:00] VITALS: BP 155/73
[2020-11-21] MEDS: ATORVASTATIN 10 MG TABLET PO SCH (22:00)
[2020-11-21] MEDS: NYSTATIN CREAM 15 GM TUBE TP SCH (23:30)
--- NOTE | 2020-11-21 23:30 | NUR ---
patient requesting iv benadryl for itching and for sleep, as well as nyastatin cream, construction stonemason MD notified.
[2020-11-21] MEDS: diphenhydrAMINE HCL 50 MG/ML VIAL IV PRN (23:47)
--- NOTE | 2020-11-21 23:50 | NUR ---
zofran given for nausea, dilaudid given for pain 10/10 chest pain and right arm pain, and benadryl for sleep and itchiness around her body. nyastatin cream not in stock at this time
[2020-11-22] MEDS: METHOCARBAMOL (500MG) 500 MG TABLET PO SCH ×4 (05:00→21:54)
[2020-11-22] MEDS: diphenhydrAMINE HCL 50 MG/ML VIAL IV PRN ×3 (06:11→18:12)
[2020-11-22] MEDS: HYDROMORPHONE 1 MG/1 ML DISP.SYRIN IV PRN ×3 (06:11→18:13)
--- NOTE | 2020-11-22 06:11 | NUR ---
patient given benadryl prn for itching, and dilaudid for pain 10/10 chest pain on the pain scale of 0-10
--- NOTE | 2020-11-22 06:51 | NUR ---
MS RN CLOSING NOTE PATIENT IS IN BED RESTING, BREATHING EVEN AND UNLABORED. PAIN MANAGED DURING THE SHIFT. ALL NEEDS MET AND ATTENDED, ALL ORDERS CARRIED OUT. SAFETY MEASURES MAINTAINED. WILL ENDORSE TO DAY SHIFT NURSE FOR MARTÍNEZ.
[2020-11-22] MEDS: BLOOD SUGAR DIAGNOSTIC 1 EACH STRIP IN SCH ×5 (07:09→21:58)
--- NOTE | 2020-11-22 07:30 | NUR ---
RN MS NOTES PT IN BED, AWAKE, ALERT AND ORIENTED, EATING BREAKFAST, NO COMPLAINT OF PAIN OR ANY DISCOMFORT, RESPIRATIONS NORMAL, CALL LIGHT WITHIN REACH, NEEDS ATTENDED.
[2020-11-22 08:00] VITALS: BP 147/74
[2020-11-22] MEDS: METFORMIN 850 MG TABLET PO SCH ×2 (08:56→17:03)
[2020-11-22] MEDS: HYDROCHLOROTHIAZIDE 25 MG TABLET PO SCH (08:56)
[2020-11-22] MEDS: FAMOTIDINE (20 MG) 20 MG TABLET PO SCH ×3 (08:56→21:54)
[2020-11-22] MEDS: METOPROLOL TARTRATE 50 MG TABLET PO SCH ×2 (08:56→17:01)
[2020-11-22] MEDS: LISINOPRIL (20MG) 20 MG TABLET PO SCH ×2 (08:57→17:01)
[2020-11-22] MEDS: AMLODIPINE BESYLATE 10 MG TABLET PO SCH (08:57)
[2020-11-22] MEDS: clonazePAM 1 MG TABLET PO SCH ×2 (08:57→17:00)
[2020-11-22] MEDS: glipiZIDE 5 MG TABLET PO SCH ×2 (09:02→17:01)
[2020-11-22] MEDS: NYSTATIN CREAM 15 GM TUBE TP SCH ×2 (09:03→17:20)
[2020-11-22] MEDS: INSULIN REGULAR, HUMAN 100 UNIT/ML 3 ML VIAL SQ PRN (13:43)
[2020-11-22 16:00] VITALS: BP 142/90
[2020-11-22] MEDS: ONDANSETRON HCL/PF 4 MG/2 ML VIAL IVP PRN (18:27)
--- NOTE | 2020-11-22 18:40 | NUR ---
RN MS NOTES PT IN BED, AWAKE, ALERT AND ORIENTED, EATING DINNER, PAIN MEDS GIVEN ORDERED, DISCHARGE HELD TODAY PENDING PAIN MANAGEMENT CONSULTATION, PER DR. BLAND, HE WILL SEE PT TOMORROW, DR. UGALDE AWARE, ALL NEEDS ATTENDED.
--- NOTE | 2020-11-22 19:15 | NUR ---
MS/RN OPENING NOTE RECEIVED PATIENT UP IN ROOM. ALERT AND ORIENTED X 4. ABLE TO MAKE NEEDS KNOWN. C/O GENERALIZED PAIN - WILL ADMINISTER PAIN MEDICATION WHEN DUE. IV ACCESS TO LEFT FOREARM MIDLINE INTACT, PATENT AND SALINE LOCKED. CALL LIGHT WITHIN REACH. ASPIRATION, FALL AND SAFETY PRECAUTIONS MAINTAINED. WILL CONTINUE TO MONITOR.
--- NOTE | 2020-11-22 19:45 | NUR ---
MS/RN NOTE AT APPROX. 1945 PATIENT STATES SHE TOOK HER LISINOPRIL AND WAS HAVING AN ALLERGIC REACTION. STATES IT FEELS LIKE HER THROAT IS CLOSING UP. VS: BP 143/76 HR 71 RR 20 T 97.9 O2 SAT 100% ROOM AIR. ICE PACK PROVIDED PER PATIENT REQUEST AND MD NOTIFIED WITH NEW ORDER FOR BENADRYL 25MG X 1 NOW WITH ORDERS INPUTTED AND CARRIED OUT. WILL CONTINUE TO MONITOR.
[2020-11-22] MEDS ORDERED: diphenhydrAMINE HCL 50 MG/ML VIAL IV ONE (19:49)
[2020-11-22 20:00] VITALS: BP 143/76
--- NOTE | 2020-11-22 20:00 | NUR ---
MS/RN NOTE PATIENT ENDORSES PAIN TO THROAT. ABLE TO TALK, RESPIRATIONS EVEN AND UNLABORED. CARRYING ON CONVERSATION WITH RN. PATIENT WOULD LIKE TYLENOL WITH HER 2100 MEDICATIONS AND DILAUDID WHEN DUE. WILL CONTINUE TO MONITOR.
[2020-11-22] MEDS: ATORVASTATIN 10 MG TABLET PO SCH ×2 (21:54→21:58)
[2020-11-23] MEDS: diphenhydrAMINE HCL 50 MG/ML VIAL IV PRN ×3 (00:17→12:56)
[2020-11-23] MEDS: HYDROMORPHONE 1 MG/1 ML DISP.SYRIN IV PRN ×3 (00:17→13:29)
[2020-11-23] MEDS: ONDANSETRON HCL/PF 4 MG/2 ML VIAL IVP PRN (01:00)
[2020-11-23] MEDS: METHOCARBAMOL (500MG) 500 MG TABLET PO SCH ×2 (06:28→13:00)
[2020-11-23] MEDS: BLOOD SUGAR DIAGNOSTIC 1 EACH STRIP IN SCH ×2 (06:29→12:39)
--- NOTE | 2020-11-23 06:40 | NUR ---
MS/RN CLOSING NOTE PATIENT CURRENTLY SLEEPING IN BED. ALERT AND ORIENTED X 4. ABLE TO MAKE NEEDS KNOWN. NO COMPLAINTS OF PAIN AT THIS TIME. IV ACCESS TO LEFT FOREARM MIDLINE INTACT, PATENT AND SALINE LOCKED. PATIENT IS AMBULATORY WITH STEADY GAIT. CONTINUES ON 2GM SODIUM DIET. CALL LIGHT WITHIN REACH. ASPIRATION, FALL AND SAFETY PRECAUTIONS MAINTAINED. WILL ENDORSE PLAN OF CARE TO ONCOMING SHIFT.
--- NOTE | 2020-11-23 07:58 | NUR ---
MS/RN OPENING NOTE RECEIVED PATIENT IN BED. ALERT AND ORIENTED X 4. ABLE TO MAKE NEEDS KNOWN. NO COMPLAINTS OF PAIN AT THIS TIME. IV ACCESS TO LEFT FOREARM MIDLINE INTACT, PATENT AND SALINE LOCKED. PATIENT IS AMBULATORY WITH STEADY GAIT. CONTINUES ON 2GM SODIUM DIET. SAFETY PRECAUTIONS OBSERVED. CALL LIGHT WITHIN REACH. ASPIRATION, FALL AND SAFETY PRECAUTIONS MAINTAINED. WILL CONTINUE TO MONITOR FOR CONTINUITY OF CARE.
[2020-11-23 08:00] VITALS: BP 146/95
[2020-11-23] MEDS ORDERED: HYDROCODONE/APAP 5/325MG TABLET PO PRN (08:30)
[2020-11-23] MEDS: AMLODIPINE BESYLATE 10 MG TABLET PO SCH (08:45)
[2020-11-23] MEDS: LISINOPRIL (20MG) 20 MG TABLET PO SCH (08:45)
[2020-11-23] MEDS: HYDROCHLOROTHIAZIDE 25 MG TABLET PO SCH (08:45)
[2020-11-23] MEDS: FAMOTIDINE (20 MG) 20 MG TABLET PO SCH (08:45)
[2020-11-23] MEDS: METFORMIN 850 MG TABLET PO SCH (08:46)
[2020-11-23] MEDS: clonazePAM 1 MG TABLET PO SCH (08:46)
[2020-11-23] MEDS: glipiZIDE 5 MG TABLET PO SCH (08:46)
[2020-11-23 09:00] VITALS: BP 146/95
[2020-11-23] MEDS: METOPROLOL TARTRATE 50 MG TABLET PO SCH (09:00)
[2020-11-23] MEDS: HYDROCODONE/APAP 10/325MG TABLET PO PRN ×4 (09:01→14:47)
[2020-11-23] MEDS: NYSTATIN CREAM 15 GM TUBE TP SCH (12:42)
[2020-11-23] MEDS: INSULIN REGULAR, HUMAN 100 UNIT/ML 3 ML VIAL SQ PRN (12:50)
--- NOTE | 2020-11-23 13:05 | NUR ---
PATIENT REFUSED NORCO 10/325MG BECAUSE SHE PREFERS THE DILAUDID VIA IV. WILL CONTINUE TO MONITOR.
--- NOTE | 2020-11-23 15:56 | NUR ---
CONT. MS/AWNING MAKER NOTES DISCHARGE INSTRUCTIONS DISCUSSED WITH THE PATIENT. BELONGINGS ACCOUNTED FOR. PATIENT REFUSED COPY OF HER DISCHARGED INSTRUCTIONS, EXPLAINED IMPORTANCE TO PATIENT BUT STILL REFUSED.
--- NOTE | 2020-11-23 15:56 | NUR ---
MS/POLICE COMMISSIONER NOTES PATIENT IS ALERT AND ORIENTED X4. ABLE TO MAKE NEEDS KNOWN. NO SOB. ON ROOM AIR. NO DISCOMFORTS REPORTED. PATIENT IS MEDICALLY STABLE AND WAS DISCHARGED TODAY. LEFT HOSPITAL VIA BUS GOING HOME.
== END 2020-11-23 15:45 | disposition home or self-care (01) | DRG 198 ==
LOC: ER 20:38 → TELE 11-20 00:43 → MED 11-21 11:46
PROVIDERS: ADMIT Nurse Practitioner Acute Care; ATTEND Internal Medicine
PROC: 05HC33Z Insertion of Infusion Device into Left Basilic Vein, Percutaneous Approach (ICD-10-PCS; principal; 2020-11-20)
DX: I25.110 Atherosclerotic heart disease of native coronary artery with unstable angina pectoris (principal); D68.59 Other primary thrombophilia; E11.42 Type 2 diabetes mellitus with diabetic polyneuropathy; E11.65 Type 2 diabetes mellitus with hyperglycemia; E66.01 Morbid (severe) obesity due to excess calories; I11.0 Hypertensive heart disease with heart failure; I50.32 Chronic diastolic (congestive) heart failure; Z76.5 Malingerer [conscious simulation]; E78.5 Hyperlipidemia, unspecified; G89.4 Chronic pain syndrome; Z86.73 Personal history of transient ischemic attack (TIA), and cerebral infarction without residual deficits; Z87.891 Personal history of nicotine dependence; Z79.02 Long term (current) use of antithrombotics/antiplatelets; Z98.61 Coronary angioplasty status; Z88.2 Allergy status to sulfonamides; Z88.8 Allergy status to other drugs, medicaments and biological substances; Z91.041 Radiographic dye allergy status; Z79.891 Long term (current) use of opiate analgesic; Z79.899 Other long term (current) drug therapy; Z79.84 Long term (current) use of oral hypoglycemic drugs; Z79.51 Long term (current) use of inhaled steroids; I25.2 Old myocardial infarction; Z68.37 Body mass index [BMI] 37.0-37.9, adult; R20.2 Paresthesia of skin
CPT/HCPCS: 36410; 36415; 70450-TC; 71045-TC; 80048-TC; 80061-TC; 81001; 82962-TC; 83735-TC; 84100-TC; 84484-TC; 84703-TC; 85025-TC; 87081-TC; C9803; G0378; J1170; J1200; J1815; J2270; J2405; Q0163

== ENCOUNTER 2021-01-14 19:42 | Emergency (ER) | payer MEDICARE, OTHER ==
[~2021-01-14] VITALS: Ht 162.6 cm; Wt 99.3 kg
[~2021-01-14 19:42] MED LIST changes: -DOXY100T2 PO; -LIDO35.4 TP
--- NOTE | 2021-01-14 19:50 | NUR ---
PATIENT BIBRA60 FROM [facility], HERE FOR ORAL BLEEDING S/P TOOTH EXTRACTION TODAY, SENT BY PMD TO BE CHECKED OUT. PATINET IS A/O X 4, RR EVEN AND UNLABORED, NO SIGNS OF SOB NOTED. PATIENT CONNECTED TO [facility].
[2021-01-14 20:33] LABS: BASOPHILS # (AUTO) 0.1 K/uL (0.0-0.2); BASOPHILS % (AUTO) 0.8 % (0.0-2.0); EOSINOPHILS % (AUTO) 2.2 % (0.0-6.0); HEMATOCRIT 43 % (33-45); HEMOGLOBIN 13.9 g/dL (11.5-14.8); LYMPHOCYTES # (AUTO) 2.2 K/uL (0.8-4.8); LYMPHOCYTES % (AUTO) 24.1 % (20.0-44.0); MEAN CORPUSCULAR HGB CONC 32 g/dl (31.0-36.0); MEAN CORPUSCULAR VOLUME 79 fL (82-100); MONOCYTES # (AUTO) 0.5 K/uL (0.1-1.30); MONOCYTES % (AUTO) 5.8 % (2.0-12.0); NEUTROPHILS # (AUTO) 6.1 K/uL (1.8-8.9); NEUTROPHILS % (AUTO) 67.1 % (43.0-81.0); PLATELET COUNT (AUTO) 239 K/uL (150-450); RED BLOOD CELL COUNT(AUTO) 5.44 MIL/uL (4.0-5.2); WHITE BLOOD COUNT (AUTO) 9.2 K/uL (4.3-11.0)
[2021-01-14 20:43] LABS: CALCIUM, SERUM 9.6 mg/dL (8.5-10.1); CARBON DIOXIDE 28 mmol/L (21-32); CHLORIDE 98 mmol/L (98-107); CREATININE 1.9 mg/dL (0.6-1.3); GLUCOSE 126 mg/dL (74-106); POTASSIUM 3.8 mmol/L (3.5-5.1); SODIUM SERUM 135 mmol/L (136-145); UREA NITROGEN, BLOOD 29 mg/dL (7-18)
[2021-01-14 20:50] LABS: ALANINE AMINOTRANSFERASE 38 U/L (12-78); ALBUMIN 4.1 g/dL (3.4-5.0); ALKALINE PHOSPHATASE 114 U/L (46-116); ASPARTATE AMINOTRANSFERASE 24 U/L (15-37); BILIRUBIN,DIRECT 0.1 mg/dL (0.0-0.2); BILIRUBIN,TOTAL 0.2 mg/dL (0.2-1.0)
--- NOTE | 2021-01-14 21:17 | NUR ---
covid swab rapid collected and sent to the lab.
[2021-01-14] MEDS ORDERED: ACETAMINOPHEN ES 500 MG TABLET ONE (21:47)
[2021-01-14] MEDS ORDERED: ACETAMINOPHEN 325 MG TABLET PO ONE (22:00)
--- NOTE | 2021-01-14 22:00 | NUR ---
PATIENT REFUSED PO TYLENOL 1 GM
--- NOTE | 2021-01-14 23:53 | NUR ---
[facility] CALLED FOR TRANSPORT. ETA 2.5-3 HRS
[2021-01-15 04:38] VITALS: BP 144/71
--- NOTE | 2021-01-15 05:34 | NUR ---
[facility] AT BEDSIDE FOR TRANSPORT TO [facility].
== END 2021-01-15 05:41 | disposition left against medical advice (07) ==
LOC: ER 19:46
DX: K92.2 Gastrointestinal hemorrhage, unspecified (principal); R07.9 Chest pain, unspecified; Z76.5 Malingerer [conscious simulation]; I25.10 Atherosclerotic heart disease of native coronary artery without angina pectoris; I11.0 Hypertensive heart disease with heart failure; I50.9 Heart failure, unspecified; Z95.5 Presence of coronary angioplasty implant and graft; E78.5 Hyperlipidemia, unspecified; Z86.73 Personal history of transient ischemic attack (TIA), and cerebral infarction without residual deficits; E11.9 Type 2 diabetes mellitus without complications; Z79.84 Long term (current) use of oral hypoglycemic drugs; Z79.899 Other long term (current) drug therapy; Z88.2 Allergy status to sulfonamides; Z88.8 Allergy status to other drugs, medicaments and biological substances; Z88.1 Allergy status to other antibiotic agents; Z91.041 Radiographic dye allergy status; Z20.822 Contact with and (suspected) exposure to COVID-19; E87.1 Hypo-osmolality and hyponatremia
CPT/HCPCS: 36415; 71045-TC; 80048-TC; 80076-TC; 84484-TC; 84702-TC; 85025-TC; 85730-TC; 86850-TC; 87081-TC; C9803

== ENCOUNTER 2021-04-25 17:14 | Emergency (ER) | payer MEDICARE, OTHER ==
[~2021-04-25] VITALS: Ht 162.6 cm; Wt 95.3 kg
--- NOTE | 2021-04-25 17:40 | NUR ---
To ER bed 7, c/o r sided numbness that started 30 mins fishing vessel captain. pt ambulatory w/ steady gait fishing vessel captain. aaox3, breathing even and non labored. connected to monitor
[2021-04-25 18:56] LABS: BASOPHILS # (AUTO) 0.4 K/uL (0.0-0.2); BASOPHILS % (AUTO) 3.4 % (0.0-2.0); EOSINOPHILS % (AUTO) 0.9 % (0.0-6.0); HEMATOCRIT 46 % (33-45); HEMOGLOBIN 14.7 g/dL (11.5-14.8); LYMPHOCYTES # (AUTO) 1.5 K/uL (0.8-4.8); LYMPHOCYTES % (AUTO) 12.4 % (20.0-44.0); MEAN CORPUSCULAR HGB CONC 32 g/dl (31.0-36.0); MEAN CORPUSCULAR VOLUME 79 fL (82-100); MONOCYTES # (AUTO) 0.6 K/uL (0.1-1.30); MONOCYTES % (AUTO) 5.2 % (2.0-12.0); NEUTROPHILS # (AUTO) 9.2 K/uL (1.8-8.9); NEUTROPHILS % (AUTO) 78.1 % (43.0-81.0); PLATELET COUNT (AUTO) 261 K/uL (150-450); WHITE BLOOD COUNT (AUTO) 11.8 K/uL (4.3-11.0)
[2021-04-25 19:03] LABS: CALCIUM, SERUM 9.9 mg/dL (8.5-10.1); CARBON DIOXIDE 24 mmol/L (21-32); CHLORIDE 101 mmol/L (98-107); CREATININE 1.2 mg/dL (0.6-1.3); GLUCOSE 215 mg/dL (74-106); POTASSIUM 3.7 mmol/L (3.5-5.1); SODIUM SERUM 138 mmol/L (136-145); UREA NITROGEN, BLOOD 15 mg/dL (7-18)
--- NOTE | 2021-04-25 19:05 | NUR ---
TAKEN TO CT
--- NOTE | 2021-04-25 19:10 | NUR ---
RETURNED FROM CT, PA AT BEDSIDE
[2021-04-25] MEDS ORDERED: AMLODIPINE BESYLATE 10 MG TABLET ONE (20:47)
[2021-04-25] MEDS: AMLODIPINE BESYLATE 5 MG TABLET PO ONE (20:53)
[2021-04-25] MEDS ORDERED: DOXY-326 PO (21:30)
[2021-04-25] MEDS ORDERED: LIDOCAINE /MPF 1% VIAL 5 ML VIAL ONE (21:34)
[2021-04-25] MEDS ORDERED: CEFTRIAXONE 500 MG VIAL ONE (21:34)
[2021-04-25] MEDS: CEFTRIAXONE 500 MG VIAL IM ONE (21:43)
--- NOTE | 2021-04-25 21:43 | NUR ---
Patient discharged to home in stable condition. Written and verbal after care instructions given. Patient verbalizes understanding of instruction. RX GIVEN
[2021-04-25 21:44] VITALS: BP 170/60
== END 2021-04-25 21:44 | disposition home or self-care (01) ==
LOC: ER 17:16
DX: R53.1 Weakness (principal); I10 Essential (primary) hypertension; Z76.5 Malingerer [conscious simulation]; Z20.2 Contact with and (suspected) exposure to infections with a predominantly sexual mode of transmission; E11.9 Type 2 diabetes mellitus without complications; J45.909 Unspecified asthma, uncomplicated; F17.200 Nicotine dependence, unspecified, uncomplicated; Z98.890 Other specified postprocedural states; Z86.73 Personal history of transient ischemic attack (TIA), and cerebral infarction without residual deficits; Z88.2 Allergy status to sulfonamides; Z88.6 Allergy status to analgesic agent; Z88.1 Allergy status to other antibiotic agents; Z88.8 Allergy status to other drugs, medicaments and biological substances; Z79.899 Other long term (current) drug therapy; Z79.84 Long term (current) use of oral hypoglycemic drugs
CPT/HCPCS: 36415; 70450; 71045; 80048; 84484; 85025; 85730; 87491; 87591; 93005; 96372; 99285; J0696; J3490

== ENCOUNTER 2022-02-21 23:23 | Inpatient (IN) | payer MEDICARE, OTHER ==
[~2022-02-21] VITALS: Ht 157.5 cm; Wt 99.8 kg
[~2022-02-21 23:23] MED LIST changes: +DOXY-326 PO
--- NOTE | 2022-02-21 23:26 | NUR ---
BIBS FOR C/O L SIDED CP RADIATING TO L BREAST 1 HOUR OPTICIAN MANAGER. AND L SIDED FACAL WEAKNESS. PATIENT ALERT AND ORIENTED X3. AMBULATORY WITH NON LABORED BREATHING IN BED 04 ON MONITOR AND POX AWAITING MD REYES.
--- NOTE | 2022-02-21 23:39 | NUR ---
AT BEDSIDE FOR EVAL.
--- NOTE | 2022-02-21 23:45 | NUR ---
EMT AT PT'S BEDSIDE
--- NOTE | 2022-02-22 00:12 | NUR ---
Brown THOMAS #24G S/L; SECURITY CONTROLS ASSESSOR AT PT'S BEDSIDE
--- NOTE | 2022-02-22 00:34 | NUR ---
COVID SWAB DONE AND SENT TO LAB
--- NOTE | 2022-02-22 00:54 | NUR ---
PT TAKEN TO CT VIA JUAN
[2022-02-22 00:59] LABS: BASOPHILS % (AUTO) 0.7 % (0.0-2.0); EOSINOPHILS % (AUTO) 1.9 % (0.0-6.0); HEMATOCRIT 40 % (33-45); HEMOGLOBIN 12.8 g/dL (11.5-14.8); LYMPHOCYTES % (AUTO) 31.3 % (20.0-44.0); MEAN CORPUSCULAR HGB CONC 32 g/dl (31.0-36.0); MEAN CORPUSCULAR VOLUME 80 fL (82-100); MONOCYTES # (AUTO) 0.6 K/uL (0.1-1.30); MONOCYTES % (AUTO) 8.7 % (2.0-12.0); NEUTROPHILS # (AUTO) 3.7 K/uL (1.8-8.9); NEUTROPHILS % (AUTO) 57.4 % (43.0-81.0); PLATELET COUNT (AUTO) 196 K/uL (150-450); RED BLOOD CELL COUNT(AUTO) 5.03 MIL/uL (4.0-5.2); WHITE BLOOD COUNT (AUTO) 6.5 K/uL (4.3-11.0)
[2022-02-22 01:34] LABS: ALANINE AMINOTRANSFERASE 49 U/L (12-78); ALBUMIN 3.4 g/dL (3.4-5.0); ALKALINE PHOSPHATASE 140 U/L (46-116); ASPARTATE AMINOTRANSFERASE 29 U/L (15-37); BILIRUBIN,DIRECT 0.1 mg/dL (0.0-0.2); BILIRUBIN,TOTAL 0.2 mg/dL (0.2-1.0); CALCIUM, SERUM 9.2 mg/dL (8.5-10.1); CARBON DIOXIDE 30 mmol/L (21-32); CHLORIDE 103 mmol/L (98-107); CREATININE 0.9 mg/dL (0.6-1.3); GLUCOSE 219 mg/dL (74-106); SODIUM SERUM 139 mmol/L (136-145); TOTAL PROTEIN, SERUM 7.5 g/dL (6.4-8.2); UREA NITROGEN, BLOOD 23 mg/dL (7-18)
[2022-02-22] MEDS ORDERED: oxyCODONE/APAP (5/325 MG) 1 UDTAB TABLET PO PRN (02:30)
[2022-02-22] MEDS ORDERED: CLONIDINE HCL 0.1 MG TABLET PO PRN (02:30)
[2022-02-22] MEDS ORDERED: METHYL SALICYLATE/MENTHOL 28GM 28 GM TUBE TP PRN (02:30)
[2022-02-22] MEDS ORDERED: ALBUTEROL SULFATE 8 GM HFA.AER.AD IH PRN (02:30)
[2022-02-22] MEDS ORDERED: Z GUARD REMEDY 4 OZ OINT TP PRN (03:00)
[2022-02-22] MEDS ORDERED: ONDANSETRON HCL/PF 4 MG/2 ML VIAL IVP PRN (03:00)
[2022-02-22] MEDS ORDERED: MAGNESIUM HYDROXIDE 30 ML UDC PO PRN (03:00)
[2022-02-22] MEDS ORDERED: ZOLPIDEM TARTRATE 5 MG TABLET PO PRN (03:00)
[2022-02-22] MEDS ORDERED: ACETAMINOPHEN 325 MG TABLET PO PRN (03:00)
[2022-02-22] MEDS ORDERED: MAG HYDROX/AL HYDROX/SIMETH 30 ML UDC PO PRN (03:00)
--- NOTE | 2022-02-22 03:11 | NUR ---
REPORT GIVEN TO MELVINA Johnson RN FOR MARTÍNEZ
--- NOTE | 2022-02-22 03:27 | NUR ---
PT TRANSFERRED TO 323-2 VIA ACLS PROTOCOL. VSS. ALL BELONGINGS WITH PT.
--- NOTE | 2022-02-22 03:55 | NUR ---
RETAIL COSMETICS SALES BEAUTY ADVISOR NOTES PATIENT A/OX4, IS VERY AGITATED COMING ONTO UNIT, PATIENT UPSET; WHY DOES SHE HAVE LIBRARY SALES CONSULTANT PRIMARY PHYSICIAN; PATIENT WAS ASKED ABOUT MEDICAL HX AND REASON SHE CAME TO ER, PATIENT STATED, "DON'T YOU HAVE ALL THAT INFORMATION ALREADY, I JUST WANT TO GET SOME SLEEP; I DONT WANT ANYONE BOTHERING ME." PATIENT AGREED FOR TELE MONITOR, UNABLE TO OBTAIN BLOOD PRESSURE, SATTING 100% ON ROOM AIR; BREATHING EVEN AND UNLABORED; TOLERATING ROOM AIR WELL; R THUMB #24G IN PLACE FOR MEAN TIME, MIDLINE INSERTION ORDERED; PATIENT ORIENTED TO STAFF AND UNIT; SAFETY PRECAUTIONS IMPLEMENTED, BED LOCKED IN LOW POSITION; SIDE RAILSX2, CALL LIGHT WITHIN REACH; WILL AWAIT ORDERS. PATIENT REFUSING FOR STAFF TO CHECK BELONGINGS; CHARGE NURSE AWARE
--- NOTE | 2022-02-22 04:28 | NUR ---
BOWLING PIN SETTERS INSTALLER NOTES PATIENT CLOSED DOOR TO ROOM, PATIENT WAS INFORMED SHE HAS TO KEEP THE DOOR OPEN; PATIENT UPSET, SAID SHE WANTS THE DOOR CLOSED SO SHE CAN SLEEP; CHARGE AWARE
[2022-02-22] MEDS ORDERED: DEXTROSE 50%-WATER 50 ML DISP.SYRIN IV PRN (05:30)
--- NOTE | 2022-02-22 06:38 | NUR ---
MITER SAWYER CLOSING NOTES PATIENT ROOM IS CLOSED, PATIENT DOES NOT WANT STAFF TO ENTER THE ROOM; CHARGE NURSE AWARE; TELE MONITOR READS SINUS RHYTHM 82BPM; PATIENT BROUGHT SEVERAL BELONGINGS WITH HER TO HOSPITAL BUT REFUSED FOR STAFF TO CHECK BELONGINGS; CHARGE AWARE AND WILL INFORM DAY SHIFT; PATIENT ALSO REFUSING ACCU CHECKS OF NOW; PATIENT VERBALIZED SHE DOES NOT WANT TO BE BOTHERED AND WANTS TO REST; SAFETY PRECAUTIONS IMPLEMENTED; BED LOCKED IN LOW POSITION; SIDE RAILSX2; CALL LIGHT WITHIN REACH; WILL ENDORSE MARTÍNEZ TO ONCOMING SHIFT
[2022-02-22] MEDS: BLOOD SUGAR DIAGNOSTIC 1 EACH STRIP VI SCH ×4 (06:44→22:31)
--- NOTE | 2022-02-22 07:44 | NUR ---
WET PROCESS MILLER OPENING NOTE Patient in bed, asleep. A/O x 4. On room air, breathing evenly and unlabored. No SOB or s/s of distress noted. IV access on Right thumb #24 SL, intact and patent; for midline insertion. On tele monitoring showing SR, HR on the 80's. Safety precautions in place: bed in low, locked position; siderailsup x 2; call light within reach. Will continue to monitor.
[2022-02-22 08:00] VITALS: BP 141/73
[2022-02-22] MEDS: LISINOPRIL (20MG) 20 MG TABLET PO SCH ×2 (09:14→21:25)
[2022-02-22] MEDS: glipiZIDE 5 MG TABLET PO SCH ×2 (09:14→17:06)
[2022-02-22] MEDS: METOPROLOL TARTRATE 50 MG TABLET PO SCH ×2 (09:14→21:25)
[2022-02-22] MEDS: clonazePAM 1 MG TABLET PO SCH ×2 (09:14→17:06)
[2022-02-22] MEDS: AMLODIPINE BESYLATE 10 MG TABLET PO SCH (09:15)
[2022-02-22] MEDS: INSULIN REGULAR, HUMAN 100 UNIT/ML 3 ML VIAL SQ PRN ×2 (09:26→11:33)
--- NOTE | 2022-02-22 09:29 | NUR ---
RN NOTE Patient requested for her blood glucose to be checked, she refused blood sugar check this AM. BS is 308, 12 units Insulin given per sliding scale. Will continue to monitor.
--- NOTE | 2022-02-22 09:48 | NUR ---
RN NOTE Patient took off tele monitor leads, asked patient if we can put it back on, patient refused, states the leads pulls on her skin. Will continue to monitor.
--- NOTE | 2022-02-22 11:09 | NUR ---
GARBAGE TRUCK HELPER/MED RECON UNABLE TO UPDATE HOME MEDICATION INFORMATION. PATIENT REFUSED TO PROVIDE INFO. AND WANTED TO REST. PER PATIENT SHE ALREADY GIVEN ALL INFORMATION TO THE EMERGENCY PERSONNEL LAST NIGHT. EXPLAINED RISK AND BENEFITS. PATIENT RIGHTS RESPECTED. PRIMARY RN AWARE.
[2022-02-22] MEDS: oxyCODONE/APAP (5/325 MG) 1 UDTAB TABLET PO PRN ×2 (13:53→20:56)
--- NOTE | 2022-02-22 13:53 | NUR ---
RN NOTE Patient complaining of pain on her chest and right shoulder, asking for Morphine medication. Medication took out from omnicell, patient only has partial dose. Medication prepared and wasted the partial dose, 1 mg. When about to give medication, patient said she didn't want the partial dose, states it would not work for her. Asked for another type of pain medication, offered Percocet 2 tablets, patient agreed and took the percocet. Wasted the other 1 mg of Morphine with Brock, charge nurse. Pharmacy notified.
--- NOTE | 2022-02-22 14:59 | NUR ---
RN NOTE Patient has an order for midline. Patient currently has IV access on right thumb, flushing. Per nursing supervisor stock ranch, hold off on midline insertion.
--- NOTE | 2022-02-22 15:39 | NUR ---
RN NOTE Per lab, patient refused lab draw 3x today. Explained the risks of not doing the blood draw, patient still refused.
[2022-02-22] MEDS: NYSTATIN CREAM 15 GM TUBE TP SCH (17:06)
[2022-02-22] MEDS: diphenhydrAMINE HCL 50 MG/ML VIAL IV PRN ×2 (17:13→23:46)
--- NOTE | 2022-02-22 17:13 | NUR ---
RN NOTE Patient complained of itching on the groin and legs, requested to get Benadryl. PRN Benadryl 25 mg IV given. Will continue to monitor.
--- NOTE | 2022-02-22 17:30 | NUR ---
RN NOTE Patient's blood glucose it 157, patient refused Insulin coverage. States that she doesn't want Insulin for blood sugar 160 or less.
[2022-02-22] MEDS: MORPHINE SULFATE INJ 2 MG/ML DISP.SYRIN IV PRN ×2 (17:49→23:47)
--- NOTE | 2022-02-22 17:49 | NUR ---
RN NOTE Patient complained of pain on chest and right side of shoulder, states that the Percocet is not very effective. Asked for Morphine, PRN Morphine 1 mg IV given. Will continue to monitor.
--- NOTE | 2022-02-22 18:17 | NUR ---
RN NOTE Asked patient if I could attach the tele box on her, patient refused; states that Dr. Long is aware that she's not wearing it.
--- NOTE | 2022-02-22 18:49 | NUR ---
SHAREPOINT ARCHITECT CLOSING NOTE Patient in bed, resting. A/O x 4, able to make needs known. Stable on room air, breathing evenly and unlabored. No SOB or s/s of distress noted. IV access on Right thumb #24 SL, intact and paten. All needs attended to. Due meds given. Patient refused external cardiac monitoring. Patient also refused full skin assessment. Safety precautions maintained: bed in low, locked position; siderailsup x 2; call light within reach. Will endorse to manager night nurse for MARTÍNEZ.
--- NOTE | 2022-02-22 19:33 | NUR ---
SERVICER COIN MACHINES OPENING NOTES: RECEIVED PATIENT AWAKE IN BED, BED IN LOW POSITION CALL LIGHTS WITHIN REACH, NO COMPLAIN OF PAIN AND DISCOMFORT AT THIS TIME, ON ROOM AIR SATURATING WELL, PATIENT REFUSED TELE MONITOR. IV LINE AT RIGHT THUMB #24 SL, PATIENT IS A/OX4 ABLE TO MAKE NEEDS KNOWN, AMBULATORY, KEPT CLEAN AND DRY ALL NEEDS MET WILL CONTINUE TO MONITOR.
[2022-02-22 20:00] VITALS: BP 112/74
[2022-02-22] MEDS: ATORVASTATIN 10 MG TABLET PO SCH (21:40)
[2022-02-22] MEDS: *INSULIN REGULAR(HUMULIN R)HUM 100 UNIT/ML VIAL SQ PRN (21:52)
--- NOTE | 2022-02-22 22:31 | NUR ---
RN NOTES: BLOOD SUGAR 355/ 10 UNITS INSULIN GIVEN PER SLIDING SCALE
--- NOTE | 2022-02-23 07:30 | NUR ---
DIRECTOR OF EXHIBITS OPENING NOTES: RECEIVED PATIENT AWAKE IN BED, BED IN LOW POSITION CALL LIGHTS WITHIN REACH, NO COMPLAIN OF PAIN AND DISCOMFORT AT THIS TIME, ON ROOM AIR SATURATING WELL, PATIENT REFUSED TELE MONITOR. IV LINE AT RIGHT THUMB #24 SL, PATIENT IS A/OX4 ABLE TO MAKE NEEDS KNOWN, AMBULATORY, KEPT CLEAN AND DRY ALL NEEDS MET WILL CONTINUE TO MONITOR.
--- NOTE | 2022-02-23 07:51 | NUR ---
EMBEDDED SOFTWARE TEST ENGINEER CLOSING NOTES:\ PATIENT WAS AWAKE IN BED, BED IN LOW POSITION CALL LIGHTS WITHIN REACH, NO COMPLAIN OF PAIN AND DISCOMFORT AT THIS TIME, ON ROOM AIR SATURATING WELL, PATIENT IS A/O4 ABLE TO MAKE NEEDS KNOWN ON ROOM AIR SATURATING WELL, ON PAIN MANAGEMENT, KEPT CLEAN AND DRY ALL NEEDS MET ENDORSE TO INCOMING SHIFT.
[2022-02-23] MEDS: INSULIN REGULAR, HUMAN 100 UNIT/ML 3 ML VIAL SQ PRN ×3 (07:56→17:30)
[2022-02-23] MEDS: BLOOD SUGAR DIAGNOSTIC 1 EACH STRIP VI SCH ×4 (07:57→22:00)
[2022-02-23] MEDS: glipiZIDE 5 MG TABLET PO SCH ×2 (08:13→17:25)
[2022-02-23 08:31] LABS: BASOPHILS % (AUTO) 0.4 % (0.0-2.0); HEMATOCRIT 38 % (33-45); LYMPHOCYTES # (AUTO) 2.1 K/uL (0.8-4.8); LYMPHOCYTES % (AUTO) 38.6 % (20.0-44.0); MEAN CORPUSCULAR HGB CONC 32 g/dl (31.0-36.0); MEAN CORPUSCULAR VOLUME 81 fL (82-100); MONOCYTES # (AUTO) 0.6 K/uL (0.1-1.30); MONOCYTES % (AUTO) 10.5 % (2.0-12.0); NEUTROPHILS # (AUTO) 2.6 K/uL (1.8-8.9); NEUTROPHILS % (AUTO) 48.5 % (43.0-81.0); PLATELET COUNT (AUTO) 181 K/uL (150-450); RED BLOOD CELL COUNT(AUTO) 4.65 MIL/uL (4.0-5.2); WHITE BLOOD COUNT (AUTO) 5.4 K/uL (4.3-11.0)
[2022-02-23] MEDS: clonazePAM 1 MG TABLET PO SCH ×2 (08:40→17:26)
[2022-02-23] MEDS: AMLODIPINE BESYLATE 10 MG TABLET PO SCH (08:41)
[2022-02-23] MEDS: LISINOPRIL (20MG) 20 MG TABLET PO SCH ×2 (08:42→22:16)
[2022-02-23] MEDS: METOPROLOL TARTRATE 50 MG TABLET PO SCH ×2 (08:42→22:16)
[2022-02-23] MEDS: NYSTATIN CREAM 15 GM TUBE TP SCH ×2 (08:48→17:35)
[2022-02-23 08:53] LABS: ALBUMIN 2.9 g/dL (3.4-5.0); BILIRUBIN,TOTAL 0.2 mg/dL (0.2-1.0); CALCIUM, SERUM 8.5 mg/dL (8.5-10.1); CREATININE 0.9 mg/dL (0.6-1.3); PHOSPHORUS 3.9 mg/dL (2.5-4.9); POTASSIUM 3.9 mmol/L (3.5-5.1); TOTAL PROTEIN, SERUM 6.4 g/dL (6.4-8.2)
[2022-02-23] MEDS: HYDROMORPHONE 1 MG/1 ML DISP.SYRIN IV PRN ×3 (10:51→20:17)
[2022-02-23 12:00] VITALS: BP 142/91
[2022-02-23] MEDS: diphenhydrAMINE HCL 50 MG/ML VIAL IV PRN ×2 (14:06→20:17)
--- NOTE | 2022-02-23 19:30 | NUR ---
CERTIFIED FLIGHT INSTRUCTOR CLOSING NOTES PATIENT AWAKE IN BED, A/O X 4 , ALL DUE MEDS GIVEN , , PATIENT C/O OF PAIN AND WITH NEW ORDER OF DILAUDID IV ORDERED , WASNT ABLE TO GIVE THE IV DUE TO IV WAS PULLED OUT , UNABLE TO INSERT LINE AND NURSING SUPER VISOR TRIED TO INSERT AND UNSUCCESSFUL , TRIED TO INSERT AND ABLE TO INSERT IN LAC AND WITH BLOOD FLOW , DILAUDID GIVEN AND BENADRYL , STILL NEEDS MIDLINE FOR IV ACCESS , ALSO WITH ORDER FOR CTCA AND PATIENT REFUSED AND CTCA WAS CANCELLED . MIDLINE WAS INSERTED LATONYA WITH NO BLEEDING NOTED BED IN LOW POSITION CALL LIGHTS WITHIN REACH, ON ROOM AIR SATURATING WELL, PATIENT REFUSED TELE MONITOR. , PATIENT IS A/OX4 ABLE TO MAKE NEEDS KNOWN, AMBULATORY, KEPT CLEAN AND DRY ALL NEEDS MET AND ENDORSED TO NEXT SHIFT .
[2022-02-23 20:00] VITALS: BP 116/71
--- NOTE | 2022-02-23 21:22 | NUR ---
SPINDLE CARVER OPENING NOTES; RECEIVED PATIENT AWAKE IN BED, BED IN LOW POSITION CALL LIGHTS WITHIN REACH, NO COMPLAIN OF PAIN AND DISCOMFORT AT THIS TIME, ON ROOM AIR SATURATING WELL, PATIENT IS A/OX4 ABLE TO MAKE NEEDS KNOWN, AMBULATORY, ON PAIN MEDICATION MANAGEMENT, PATIENT ON TELE MONITOR BUT REFUSED, MONITOR, REFUSED BLOOD PRESSURE CHECK, KEPT CLEAN AND DRY ALL NEEDS MET WILL CONTINUE TO MONITOR.
--- NOTE | 2022-02-23 22:00 | NUR ---
RN NOTES; BLOOD SUGAR-297- 6 UNITS INSULIN GIVEN PER SLIDING SCALE
[2022-02-23] MEDS: ATORVASTATIN 10 MG TABLET PO SCH (22:17)
[2022-02-23] MEDS: *INSULIN REGULAR(HUMULIN R)HUM 100 UNIT/ML VIAL SQ PRN (23:04)
--- NOTE | 2022-02-23 23:29 | NUR ---
RN NOTES: PATIENT COMPLAIN OF CHEST PAIN STAT EKG DONE RESULT IS SR-77 BP/ 116/71, HR -88 NOTIFY STRIKER OFF KAREN AND ORDER PERCOCET 5-325 ONE TIME FOR BREAKTHROUGH PAIN NOTED AND CARRY OUT.
[2022-02-23] MEDS ORDERED: oxyCODONE/APAP (5/325 MG) 1 UDTAB TABLET PO ONE (23:30)
[2022-02-24] MEDS: diphenhydrAMINE HCL 50 MG/ML VIAL IV PRN ×2 (04:21→10:53)
[2022-02-24] MEDS: HYDROMORPHONE 1 MG/1 ML DISP.SYRIN IV PRN ×2 (04:21→10:53)
--- NOTE | 2022-02-24 06:58 | NUR ---
PROGRAM MANAGEMENT MANAGER CLOSING NOTES: PATIENT AWAKE IN BED, BED IN LOW POSITION CALL LIGHTS WITHIN REACH, NO COMPLAIN OF PAIN AND DISCOMFORT AT THIS TIME, ON ROOM AIR SATURATING WELL, PATIENT IS A/OX4 ABLE TO MAKE NEEDS KNOWN, ON PAIN MANAGEMENT, WITH MID LINEAT LATONYA- SL REFUSE TELE MONITOR,PATIENT KEPT CLEAN AND DRY ALL NEEDS MET ENDORSE TO INCOMING SHIFT.
[2022-02-24] MEDS: INSULIN REGULAR, HUMAN 100 UNIT/ML 3 ML VIAL SQ PRN (07:06)
--- NOTE | 2022-02-24 07:20 | NUR ---
MANAGER OF SUSTAINABILITY OPENING NOTES: RECEIVED PATIENT IN BED AWAKE. PATIENT ALERT AND ORIENTED X 4 AND ABLE TO VERBALIZED NEEDS, NO SOB OR CARDIAC DISTRESS NOTED. DENIES ANY PAIN AT THIS TIME. PATIENT AMBULATORY. NOTED WITH LATONYA MIDLINE PATENT, INTACT AND FLUSHING WELL. SALINE LOCKED. SAFETY PRECAUTIONS MAINTAINED: BED LOCKED AND IN LOWEST POSITION, SIDE RAILS UP X 2, CALL LIGHT IN EASY REACH FOR HELP. WILL MONITOR PATIENT FOR ANY SIGNIFICANT CHANGES.
[2022-02-24] MEDS: glipiZIDE 5 MG TABLET PO SCH (07:27)
[2022-02-24] MEDS: BLOOD SUGAR DIAGNOSTIC 1 EACH STRIP VI SCH ×2 (07:32→11:30)
[2022-02-24 08:00] VITALS: BP 149/101
[2022-02-24] MEDS: AMLODIPINE BESYLATE 10 MG TABLET PO SCH (08:56)
[2022-02-24] MEDS: METOPROLOL TARTRATE 50 MG TABLET PO SCH (08:56)
[2022-02-24] MEDS: clonazePAM 1 MG TABLET PO SCH (08:56)
[2022-02-24 08:57] VITALS: BP 149/101
[2022-02-24] MEDS: LISINOPRIL (20MG) 20 MG TABLET PO SCH (08:57)
[2022-02-24] MEDS: NYSTATIN CREAM 15 GM TUBE TP SCH (09:26)
[2022-02-24] MEDS ORDERED: INSU100I19 SQ (11:07)
--- NOTE | 2022-02-24 14:20 | NUR ---
SENIOR CLIMATE ADVISOR NOTES: Patient dc home, patient alert and oriented x 3 and able to verbalized needs.No SOB or cardiac distress noted. IV access and identification band removed. senior site manager arranged transportation, all belongings carried with the resident. discharge meds and instructions provided and verbalized understanding. instructed pt to follow up PCP after 1-2 weeks. Patient refused body assessment. Patient left the unit stable and wheeled in the lobby with ALTA Merrill, all belongings carried with the patient. Patient left the unit stable.
== END 2022-02-24 14:15 | disposition home or self-care (01) | DRG 302 ==
LOC: ER 23:39 → TELE 02-22 02:50
PROVIDERS: ADMIT Internal Medicine; ATTEND Internal Medicine
PROC: 05HC33Z Insertion of Infusion Device into Left Basilic Vein, Percutaneous Approach (ICD-10-PCS; principal; 2022-02-23)
DX: I25.110 Atherosclerotic heart disease of native coronary artery with unstable angina pectoris (principal); N17.0 Acute kidney failure with tubular necrosis; Z20.822 Contact with and (suspected) exposure to COVID-19; Z79.84 Long term (current) use of oral hypoglycemic drugs; J45.909 Unspecified asthma, uncomplicated; I50.9 Heart failure, unspecified; I11.0 Hypertensive heart disease with heart failure; E78.5 Hyperlipidemia, unspecified; Z86.73 Personal history of transient ischemic attack (TIA), and cerebral infarction without residual deficits; Z95.5 Presence of coronary angioplasty implant and graft; I25.2 Old myocardial infarction; E11.65 Type 2 diabetes mellitus with hyperglycemia; Z88.2 Allergy status to sulfonamides; Z88.8 Allergy status to other drugs, medicaments and biological substances; Z88.6 Allergy status to analgesic agent; Z91.041 Radiographic dye allergy status; Z79.51 Long term (current) use of inhaled steroids; Z79.899 Other long term (current) drug therapy
CPT/HCPCS: 36415; 70450-TC; 71045-TC; 80048-TC; 80053-TC; 80061-TC; 80076-TC; 82962-TC; 83735-TC; 83880; 84100-TC; 84484-TC; 85025-TC; 85730-TC; 87081-TC; 93307-TC; C9803; G0378; J1170; J1200; J1815; J2270

== ENCOUNTER 2022-06-17 01:22 | Emergency (ER) | payer MEDICARE, OTHER ==
[~2022-06-17] VITALS: Ht 165.1 cm; Wt 99.8 kg
[~2022-06-17 01:22] MED LIST changes: -DOXY-326 PO; -GLIP5TAB13 PO; +INSU100I19 SQ
[2022-06-17 01:40] VITALS: BP 165/104
--- NOTE | 2022-06-17 01:40 | NUR ---
DR. DENNISE CUEVA AT PT'S BEDSIDE FOR EVAL
--- NOTE | 2022-06-17 01:41 | NUR ---
CODE STROKE ACTIVATED
--- NOTE | 2022-06-17 01:42 | NUR ---
JUAN AMBROSE 376; DR. BOWDEN NOTIFIED
--- NOTE | 2022-06-17 01:43 | NUR ---
PT REMOVED IV LINE AND THREW EVERYTHING TO THE FLOOR WHILE ATTEMPTING TO INITIATE IV ACCESS.
--- NOTE | 2022-06-17 01:44 | NUR ---
CHAIN REPAIRER AT PT'S BEDSIDE
--- NOTE | 2022-06-17 01:45 | NUR ---
RN SUP AT PT'S BEDSIDE WITH NoteE
--- NOTE | 2022-06-17 01:45 | NUR ---
PT IS REFUSING IV ACCESS, IS CONCERNED ABOUT HER BELONGINGS IN THE WAITING ROOM
[2022-06-17] MEDS ORDERED: IOHEXOL-350 100 ML VIAL IV ONE (01:46)
--- NOTE | 2022-06-17 01:46 | NUR ---
PT IS REFUSING TO BE TAKEN TO CT SCAN
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
--- NOTE | 2022-06-17 02:06 | NUR ---
PT ELOPED FROM ER
== END 2022-06-17 02:28 | disposition left against medical advice (07) ==
LOC: ER 01:28
DX: Z76.5 Malingerer [conscious simulation] (principal); I10 Essential (primary) hypertension; J45.909 Unspecified asthma, uncomplicated; E11.9 Type 2 diabetes mellitus without complications; Z88.2 Allergy status to sulfonamides; Z88.6 Allergy status to analgesic agent; Z88.1 Allergy status to other antibiotic agents; Z91.040 Latex allergy status; Z86.73 Personal history of transient ischemic attack (TIA), and cerebral infarction without residual deficits; Z79.84 Long term (current) use of oral hypoglycemic drugs
CPT/HCPCS: 82962-TC; Q9967